=== PATIENT | male | born 1960 | race Caucasian/White ===

== ENCOUNTER 2020-05-22 19:07 | Emergency (ER) | payer MEDICARE, OTHER, SELFPAY ==
[2020-05-22 19:17] VITALS: BP 136/83; PULSE 66; RESP 14; TEMP 36.9; O2SAT 97; BMI 23.7
[2020-05-22 19:41] VITALS: BP 96/52; PULSE 64; RESP 16; O2SAT 98
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
== END 2020-05-22 20:17 | disposition left against medical advice (07) ==
PROVIDERS: Emergency Provider Family Medicine
DX: S80.11XA Contusion of right lower leg, initial encounter (principal); W22.8XXA Striking against or struck by other objects, initial encounter; Z53.21 Procedure and treatment not carried out due to patient leaving prior to being seen by health care provider
CPT/HCPCS: 12345; 99281

== ENCOUNTER 2023-03-19 13:54 | Inpatient (IN) | payer MEDICARE, SELFPAY ==
[2023-03-19 14:16] LABS: Basophils % 0.3 %; Eosinophils # 0.1 10^3/uL (0.0-0.8); Eosinophils % 0.3 %; Hematocrit 55.2 % (42.0-52.0); Hemoglobin 18.2 g/dL (11.7-16.6); Lymphocytes % 13.7 %; Mean Corpuscular Hemoglobin 30.3 pg (28.0-34.0); Mean Corpuscular Volume 91.8 fl (80-94); Mean Platelet Volume 9.1 fL (7.4-10.4); Monocytes # 1.1 10^3/uL (0.2-0.9); Monocytes % 7.3 %; Neutrophils # 11.24 10^3/uL (1.8-7.7); Neutrophils % 77.8 %; Nucleated Red Blood Cells % 0 %; Platelet Count 388 10^3/cmm (130-400); Red Blood Count 6.01 10^6/uL (4.1-5.3); Red Cell Distribution Width 12.5 % (12.1-15.1); White Blood Count 14.5 10^3/uL (4.0-10.0)
[2023-03-19 14:20] VITALS: BP 130/98; PULSE 77; RESP 18; TEMP 36.5; O2SAT 95; BMI 34.8
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
--- NOTE | 2023-03-19 14:27 | ECG_ITS ---
[facility] Test Date: 2023-03-19 Pat Name: Lizzie Dhillon Department: Room: Gender: Male Community Service Manager: : 1960 Requested By: Derian Nava Order Number: [id number] Jennifer MD: Keysha Hebert M.D. Measurements Intervals [place] Rate: 79 P: 51 NC: 164 QRS: 33 QRSD: 86 T: 60 QT: 378 QTc: 435 Interpretive Statements SINUS RHYTHM No previous ECG available for comparison Electronically Signed On 03-19-2023 21:05:54 CDT by Keysha Hebert M.D. [id number]
[2023-03-19 14:40] LABS: Alanine Aminotransferase 21 U/L (0-41); Albumin Level 4.8 g/dL (3.5-5.2); Alkaline Phosphatase 85 U/L (40-130); Anion Gap 17.7 (5-19); Aspartate Amino Transferase 12 U/L (0-40); Blood Urea Nitrogen 30 mg/dL (8-23); Calcium 9.7 mg/dL (8.5-10.5); Carbon Dioxide 25 mmol/L (22-29); Chloride 97 mmol/L (98-107); Globulin 3.8 g/dL (1.3-4.6); Glomerular Filtration Rate 32.3 mL/min (90-130); Glucose 112 mg/dL (65-115); Magnesium 2.4 mg/dL (1.7-2.3); Osmolality Calculated 287 mOsm/kg (285-295); Potassium 4.7 mmol/L (3.5-5.1); Sodium 135 mmol/L (136-145); Total Bilirubin 0.9 mg/dL (0.15-1.2); Total Protein 8.6 g/dL (6.6-8.7)
[2023-03-19] MEDS: sodium chloride 0.9% 1,000 ML 999 ML IV (14:44)
[2023-03-19 14:55] LABS: Lipase 15 U/L (13-60)
--- NOTE | 2023-03-19 15:11 | PC.PHAR ---
Addendum entered by Ashwini Mccormack 03/20/23 08:44: rx filled 02/05/23 90d/s divalproex er 250mg bid-pts family said on 03/19/23 pt took 250mg bid then pts daughter diamante states the pt only takes 250mg hs-annie silva put in divalproex 125mg dr in on 03/19/23 19:44 per pts family and pts daughter diamante on 03/20/23 states the pt is only taking the divalproex er 250mg hs Original Note: pts daughter verified pts medications-pts daughter states the pt just started the increased dose if mounjaro 5mg on sunday
[2023-03-19] MEDS: promethazine 25 mg/mL SDV 1 mL IM (15:27)
--- NOTE | 2023-03-19 15:38 | CTR_ITS ---
PROCEDURE INFORMATION: Exam: CT Abdomen And Pelvis Without Contrast Exam date and time: 03/19/2023 3:47 PM Age: 62 years old Clinical indication: Abdominal pain TECHNIQUE: Imaging protocol: Computed tomography of the abdomen and pelvis without contrast. Radiation optimization: All CT scans at this facility use at least one of these dose optimization techniques: automated exposure control; mA and/or kV adjustment per patient size (includes targeted exams where dose is matched to clinical indication); or iterative reconstruction. REPORTING DATA: Count of CT and Cardiac NM exams in prior 12 months: This patient has received 0 known CTs and 0 known cardiac nuclear medicine studies in the 12 months prior to the current study. COMPARISON: CR XR hip RT 2-3V wo/w pel* [id number] 04/12/2017 9:55 AM RADIATION DOSE METRICS: Total DLP (mGy-cm): 1106.15 FINDINGS: Lungs: Mild subsegmental atelectasis at the lung bases. Small calcified granuloma right hilum and right middle lobe. Liver: There is fatty infiltration throughout the liver which is otherwise unremarkable. Gallbladder and bile ducts: Gallbladder mild-moderately distended which may be due to prolonged fasting. 1.7 cm oval-shaped noncalcified nodular density dependent portion the gallbladder likely representing noncalcified gallstone. Bile ducts not dilated. Pancreas: Unremarkable. Main pancreatic duct is not significantly dilated. Spleen: There are scattered calcified granulomas within the spleen, longstanding, otherwise spleen is unremarkable. Adrenal glands: Adrenal glands are not enlarged. No masses detected. Kidneys and ureters: Scarring right kidney. Left kidney is unremarkable. Stomach and bowel: Stomach mildly distended. There are multiple mildly dilated small bowel loops involving proximal mid small bowel with decompressed distal small bowel consistent with a mid small bowel obstruction. Transition point identified lateral aspect right mid abdomen. (Series 3, image 39). No compelling evidence of small bowel volvulus. Few scattered diverticula sigmoid colon without evidence of acute diverticulitis. Appendix: No evidence of appendicitis. Intraperitoneal space: Unremarkable. No free air. No significant fluid collection. Vasculature: Scattered atherosclerotic changes of the abdominal aorta and iliac vessels. No aortic aneurysm. Lymph nodes: Unremarkable. No enlarged lymph nodes. Urinary bladder: Urinary bladder is unremarkable. Reproductive: Prostate gland not significantly enlarged. Bones/joints: Cephalomedullary nail within the left hip. Moderate degenerative changes L5-S1. No acute bony abnormalities. Soft tissues: Soft tissues are unremarkable. CT/CT abdomen pelvis wo con [id number] IMPRESSION: 1. Findings consistent with mid small bowel obstruction etiology of which is unclear. No compelling evidence of small bowel volvulus. 2. Mildly distended gallbladder with solitary gallstone. 3. Fatty infiltration of the liver. 4. Scattered diverticuli distal large bowel without evidence of acute diverticulitis. 5. Additional chronic findings as above.
[2023-03-19] MEDS: LORazepam 2 mg/mL INJ 1 mL IVP ×2 (16:49→21:42)
[2023-03-19] MEDS: cetacaine Spray 20 gm Can 1 SPRAY TOPICAL (16:54)
--- NOTE | 2023-03-19 17:07 | XRR_ITS ---
PROCEDURE INFORMATION: Exam: XR Chest Exam date and time: 03/19/2023 5:27 PM Age: 62 years old Clinical indication: Device placement; Ng tube; Additional info: Check ng tube placement TECHNIQUE: Imaging protocol: Radiologic exam of the chest. Views: 1 view. COMPARISON: CR XR chest 2V* [id number] 01/09/2018 2:37 PM FINDINGS: Tubes, catheters and devices: Patient has undergone placement of an NG tube whose tip projects over the midportion of the body of the stomach approximately 7 cm below the GE junction. Lungs: Visualized lung [place] are aerated and clear. Pleural spaces: Unremarkable. No pleural effusion. No pneumothorax. Heart/Mediastinum: Unremarkable. No cardiomegaly. Bones/joints: Unremarkable for age. XR/XR chest 1V portable [id number] IMPRESSION: NG tube tip within the body of the stomach
--- NOTE | 2023-03-19 18:00 | PM.HP ---
Providers/Chief Complaint Admitting Physician: Tania Albright MD Primary Care Provider: SILVER Pruitt Chief Complaint: N/V/D History of Present Illness Lizzie Dhillon is a 62 year old male with past medical history of type 2 diabetes mellitus on Mounjaro, DVT x2, appendectomy in past, hypertension, traumatic brain injury presents to the ER today with nausea and vomiting for last 3 days. Vomitus containing food particle and bilious in nature. Denies any melena, hematemesis, hematochezia. Does complain of diarrhea ongoing for 3 to 4 days as well along with abdominal pain. Denies any chest pain. Denies any recent changes in medications. ER course: NG tube was placed after 2 mg of IV Ativan. Surgery was consulted. Patient was given Zofran, Phenergan and 2 L of IV fluids. On examination patient is lying comfortably in bed complaining of mild nausea and abdominal pain. NG tube came out while patient was sneezing. Review of Systems General: Reports: 10 or more systems reviewed and unremarkable except in HPI and below Const: Denies: fever(s), chills or body aches Eyes: Denies: change in vision, blurry vision or photophobia ENMT: Reports: hoarseness; Denies: throat pain, enlarged tonsils, odynophagia or nasal congestion Card: Denies: chest pain, palpitations, irregular heart rhythm, edema, swelling of feet/ankles, lightheadedness, pre-syncope, dyspnea on exertion or orthopnea Resp: Denies: dyspnea, productive cough, non-productive cough, wheezing, stridor, pain on inspiration, change in phlegm color, hemoptysis or chest congestion GI: Denies: abdominal pain, nausea, vomiting, hematemesis, coffee ground emesis, dysphagia, heartburn, diarrhea, constipation, GI cramping, change in stool character, hematochezia or melena : Denies: flank pain, dysuria, urinary frequency, urinary urgency, urinary hesitancy or hematuria Musc: Denies: neck pain, back pain, extremity pain, joint swelling, joint warmth or deformity Neuro: Denies: headache(s), numbness in extremities, weakness in extremities, sensory changes, difficulty walking, frequent falls, dizziness, vertigo, behavioral changes, Slurred speech present or seizure-like activity Psych: Denies: anxiety, depression, suicidal ideation or homicidal ideation Endo: Denies: polyuria, polydipsia, tired all the time, cold intolerance or hot flashes Lalo/Lymph: Denies: easy bruising or easy bleeding Medications/Allergies Home Medications Medication Instructions Recorded Confirmed Last Taken Type apixaban 5 mg tablet 5 mg PO BID 09/14/22 03/19/23 03/19/23 09:00 History amlodipine 10 mg tablet 10 mg PO BEDTIME 03/19/23 03/19/23 03/18/23 History divalproex 125 mg tablet,delayed mg PO BEDTIME 03/19/23 Unknown History release divalproex 250 mg tablet,extended 250 mg PO BEDTIME 03/19/23 03/19/23 03/19/23 09:00 History release 24 hr fluticasone propionate 50 2 spray intranasal DAILY PRN 03/19/23 03/19/23 Unknown History mcg/actuation nasal Allergy Symptoms spray,suspension lisinopril 40 mg tablet 40 mg PO QAM 03/19/23 03/19/23 03/19/23 History magnesium oxide 400 mg PO BEDTIME 03/19/23 03/19/23 03/18/23 History propranolol 20 mg tablet 20 mg PO BID 03/19/23 03/19/23 03/19/23 09:00 History tirzepatide 5 mg/0.5 mL 5 mg SUBCUT Q7D 03/19/23 03/19/23 03/16/23 History subcutaneous pen injector (Mounjaro) Allergies Allergy/AdvReac Type Severity Reaction Status Date / Time No Known Allergies Allergy Verified 03/19/23 14:25 PFSH Acute PFSH: Medical History (Updated 03/19/23 @ 22:36 by Tania Albright MD) Diabetes mellitus HTN (hypertension) Hx of deep venous thrombosis Hx of traumatic brain injury Surgical History (Updated 03/19/23 @ 16:35 by Derian Long DO) History of appendectomy Social History (Updated 03/19/23 @ 22:34 by Tania Albright MD) Smoking and tobacco status: former smoker Alcohol intake: never Substance/Drug Use: never Household members: family Housing: House Vitals/I&O/Wt Last Vital Signs Temp 97.7 F 03/19/23 14:20 Pulse 77 03/19/23 14:20 Resp 18 03/19/23 14:20 BP 130/98 03/19/23 14:20 Pulse Ox 95 03/19/23 14:20 O2 Del Method Nasal Cannula 03/19/23 14:20 O2 Flow Rate 4 03/19/23 14:20 03/19/23 03/19/23 03/19/23 06:59 14:59 22:59 Intake Total 1000 / 1000 Balance 1000 / 1000 Weight last 48 hrs Weight 113.398 kg Physical Exam Narrative: General: No acute distress, AO x 3, dehydrated HEENT: PERRLA, pupils bilaterally equal and reactive, pallors not present Chest: Normal vesicular breath sounds, no added sounds, equal good air entry bilaterally CVS: S1-S2 regular, no murmurs, no tachycardia, no gallops, no rubs Abdomen: Soft, generalized tenderness, no rebound, no organomegaly, bowel sounds sluggish Neuro: No focal deficits, no facial deformity, AO x3, power 5/5 in all limbs Data 03/19/23 14:08 03/19/23 14:08 A&P Assessment and plan (1) Small bowel obstruction: Seen on CT abdomen pelvis. Transition point in lateral aspect of right mid abdomen. Surgery has been consulted. G-tube placement. Conservative treatment. NPO. Patient does have leukocytosis with diarrhea. Check blood culture, stool studies to rule out C. difficile. Start on IV Zosyn. Normal saline at 75 cc/h. Protonix daily, Zofran as needed. (2) EILEEN (acute kidney injury): Most likely in setting of dehydration along with home dose of lisinopril. Check urine lites, urinalysis. Monitor BMP daily. Fluid as above. Medical reconciliation done for nephrotoxic drugs. (3) Leukocytosis: Follow-up blood culture, stool studies. Cannot rule out in setting of dehydration and reactive in setting of small bowel obstruction (4) Diarrhea: (5) Diabetes mellitus: Check A1c. Insulin sliding scale low-dose protocol every 6 hours (6) HTN (hypertension): Goal blood pressure less than 140/90 mmHg. Hydralazine 5 mg every 4 hours as needed for systolic blood pressure more than 140 mmHg. (7) History of appendectomy: (8) Hx of deep venous thrombosis: X2. Takes Eliquis 5 mg twice daily at home. Currently NPO. Lovenox 1 mg/kg body weight every 12 hourly. Plan Full code. NPO. Protonix OPD prophylaxis. We will hold off Lovenox will suffice as DVT prophylaxis. Attestations Medical Necessity Statement*: For more than 2 midnights for management of small bowel obstruction, acute kidney injury Diagnoses Small bowel obstruction K56.609 EILEEN (acute kidney injury) N17.9 Leukocytosis D72.829 Diarrhea R19.7 Diabetes mellitus E11.9 HTN (hypertension) I10 History of appendectomy Z90.49 Hx of deep venous thrombosis Z86.718
[2023-03-19] MEDS: D5-NS 0.45% + KCL 20 mEq 20 MEQ/1,000 ML BAG 100 MEQ IV (18:11)
[2023-03-19 19:52] VITALS: PULSE 74; O2SAT 90
[2023-03-19 19:53] VITALS: PULSE 74; RESP 18; O2SAT 90
[2023-03-19 20:00] VITALS: BP 118/84; PULSE 86; RESP 16; TEMP 36.1; O2SAT 94
[2023-03-19] MEDS: pantoprazole 40 mg SDV IVP (21:42)
[2023-03-19] MEDS: enoxaparin 100 mg/mL Syringe 110 MG SUBCUT (21:42)
[2023-03-19] MEDS: cetacaine Spray 5 gm Can 1 SPRAY TOPICAL (21:43)
[2023-03-19 22:01] LABS: NT Pro B Type Natriuretic Pept 46 pg/mL (0-125); Procalcitonin 0.19 ng/mL (0-0.5); Vitamin B12 459 pg/mL (232-1245)
[2023-03-19] MEDS: piperacillin-tazobactam 3.375 GM in sodium chloride 0.9% (plus) 50 ML IV (22:07)
[2023-03-19 22:11] LABS: Iron 35 ug/dL (59-158); Percent Saturation 9.2 % (20-50); Total Iron Binding Capacity 378 mcg/dl; Unsaturated Iron Binding 343 ug/dL (112-347)
--- NOTE | 2023-03-19 22:53 | XRR_ITS ---
PROCEDURE INFORMATION: Exam: XR Chest Exam date and time: 03/19/2023 11:02 PM Age: 62 years old Clinical indication: Device placement; Ng tube; Additional info: Ng placement TECHNIQUE: Imaging protocol: Radiologic exam of the chest. Views: 1 view. COMPARISON: CR (CHEST, ) 03/19/2023 5:27 PM FINDINGS: Tubes, catheters and devices: There is a feeding tube present with its tip in the stomach advanced since prior. Lungs: Bibasilar infiltrates are now present with pulmonary hypoinflation. Pleural spaces: Unremarkable. No pleural effusion. No pneumothorax. Heart/Mediastinum: Stable heart size. Bones/joints: Stable bones. XR/XR chest 1V portable [id number] IMPRESSION: 1. Feeding tube tip in stomach, advanced since previous. 2. New bibasilar infiltrates. Correlate for pneumonia.
[2023-03-19 23:01] LABS: Glucose Point of Care 150 mg/dL (70-110)
[2023-03-19] MEDS: sodium chloride 0.9% 1,000 ML 75 ML IV (23:19)
[2023-03-19] MEDS: insulin lispro 100 unit/1 mL SUBCUT (23:19)
[2023-03-20] VITALS (11 sets, daily range): BP systolic 103–138; BP diastolic 71–90; PULSE 64–105; RESP 17–20; TEMP 36.2–36.8; O2SAT 89–96
[2023-03-20] MEDS: sodium chloride 0.9% 1,000 ML 999 ML IV (03:28)
[2023-03-20 04:11] LABS: Glucose Point of Care 106 mg/dL (70-110)
[2023-03-20] MEDS: piperacillin-tazobactam 3.375 GM in sodium chloride 0.9% (plus) 50 ML IV ×3 (05:16→20:45)
[2023-03-20 05:34] LABS: Add Urine Microscopic? YES; Bilirubin Urine 1+ (Negative); Blood Urine Neg (Negative); Glucose Urine UA Norm (Normal); Ketones Urine 1+ (Negative); Leukocyte Esterase Urine Negative (Negative); Nitrate Urine Negative (Negative); Protein Urine 1+ (Negative); Urine Appearance Hazy (CLEAR); Urine Color Yellow (Yellow); Urobilinogen Urine 1 mg/dL (Negative); pH Urine 5 (5-7)
[2023-03-20 05:35] LABS: Add Urine Culture? No; Bacteria Urine 1+ /hpf; Mucus Urine 4+ /hpf
[2023-03-20 05:38] LABS: Potassium, Radom Urine 92 mmol/L; Urine Random Chloride 30 mmol/L; Urine Random Sodium 38 mmol/L
[2023-03-20 07:35] LABS: Basophils % 0.2 %; Eosinophils # 0.1 10^3/uL (0.0-0.8); Eosinophils % 0.4 %; Hematocrit 46.4 % (42.0-52.0); Hemoglobin 15.1 g/dL (11.7-16.6); Lymphocytes # 2.1 10^3/uL (0.8-4.8); Lymphocytes % 18.6 %; Mean Corpuscular HGB Conc 32.5 g/dL (30.0-36.0); Mean Corpuscular Hemoglobin 30.3 pg (28.0-34.0); Mean Corpuscular Volume 93.2 fl (80-94); Mean Platelet Volume 9.2 fL (7.4-10.4); Monocytes # 1.1 10^3/uL (0.2-0.9); Monocytes % 10.2 %; Neutrophils # 7.86 10^3/uL (1.8-7.7); Neutrophils % 70.2 %; Nucleated Red Blood Cells % 0 %; Platelet Count 307 10^3/cmm (130-400); Red Blood Count 4.98 10^6/uL (4.1-5.3); Red Cell Distribution Width 12.6 % (12.1-15.1); White Blood Count 11.2 10^3/uL (4.0-10.0)
--- NOTE | 2023-03-20 08:00 | PM.CONSULT ---
Providers/Reason For Consult Consulting Physician/Specialty*: Dr. Dave Piedra, DO/General surgery Reason for Consult*: Small bowel obstruction Attending Physician: Tania Albright MD Primary Care Provider: SILVER Pruitt History of Present Illness History of Present Illness Lizzie Dhillon is a 62 year old male, with a history of appendectomy, presented to the hospital with a 2-day history of nausea vomiting and diarrhea. He denies any hematemesis, hematochezia and/or melena. He denies any significant abdominal pain. A CT of the abdomen and pelvis in the ER showed a small bowel obstruction with a transition point in the right lower quadrant. He pulled out his NG tube while in the ER and it was replaced. He again pulled his NG tube out this morning. He reports that he is having diarrhea but has not passed flatus since yesterday. Review of Systems General: Reports: 10 or more systems reviewed and unremarkable except in HPI and below Medications/Allergies Home Medications Medication Instructions Recorded Confirmed Last Taken Type apixaban 5 mg tablet 5 mg PO BID 09/14/22 03/19/23 03/19/23 09:00 History amlodipine 10 mg tablet 10 mg PO BEDTIME 03/19/23 03/19/23 03/18/23 History divalproex 250 mg tablet,extended 250 mg PO BEDTIME 03/19/23 03/19/23 03/19/23 09:00 History release 24 hr fluticasone propionate 50 2 spray intranasal DAILY PRN 03/19/23 03/19/23 Unknown History mcg/actuation nasal Allergy Symptoms spray,suspension lisinopril 40 mg tablet 40 mg PO QAM 03/19/23 03/19/23 03/19/23 History magnesium oxide 400 mg PO BEDTIME 03/19/23 03/19/23 03/18/23 History propranolol 20 mg tablet 20 mg PO BID 03/19/23 03/19/23 03/19/23 09:00 History tirzepatide 5 mg/0.5 mL 5 mg SUBCUT Q7D 03/19/23 03/19/23 03/16/23 History subcutaneous pen injector (Mounjaro) Allergies Allergy/AdvReac Type Severity Reaction Status Date / Time No Known Allergies Allergy Verified 03/19/23 14:25 Current Medications Generic Name Dose Route Start Last Admin Trade Name Freq PRN Reason Stop Dose Admin Enoxaparin Sodium 100 mg 03/20/23 10:00 03/20/23 10:08 Enoxaparin 100 Mg/Ml Syringe SUBCUT 100 mg Q12H TRACEY Administration Piperacillin Sod/Tazobactam 50 mls @ 12.5 mls/hr 03/19/23 21:30 03/20/23 13:34 Sod 3.375 gm/ Sodium Chloride IV 12.5 mls/hr Q8H TRACEY Administration Sodium Chloride 1,000 mls @ 75 mls/hr 03/20/23 10:15 03/20/23 11:58 Sodium Chloride 0.9% IV 150 mls/hr .[id number] TRACEY Administration Insulin Human Lispro 0 unit 03/19/23 22:45 03/20/23 15:17 Insulin Lispro 100 Unit/1 Ml SUBCUT Not Given Q6H TRACEY Protocol Pantoprazole Sodium 40 mg 03/19/23 18:15 03/19/23 21:42 Pantoprazole 40 Mg Sdv IVP 40 mg Q24H TRACEY Administration Propranolol HCl 20 mg 03/20/23 18:00 03/20/23 17:15 Propranolol 20 Mg Tablet PO 20 mg BID TRACEY Administration PFSH Acute PFSH: Medical History Diabetes mellitus HTN (hypertension) Hx of deep venous thrombosis Hx of traumatic brain injury Surgical History History of appendectomy Social History Smoking and tobacco status: former smoker Alcohol intake: never Substance/Drug Use: never Household members: family Housing: House Vitals/I&O/Wt Last Vital Signs Temp 98.2 F 03/20/23 15:23 Pulse 75 03/20/23 15:23 Resp 18 03/20/23 15:23 BP 109/75 03/20/23 15:23 Pulse Ox 95 03/20/23 15:23 O2 Del Method Room Air 03/20/23 15:23 O2 Flow Rate 2 03/20/23 11:20 03/20/23 03/20/23 03/20/23 06:59 14:59 22:59 Intake Total 1631.667 / 2631.667 643.125 / 643.125 240 / 883.125 Output Total 850 / 850 Balance 781.667 / 1781.667 643.125 / 643.125 240 / 883.125 Weight last 48 hrs Weight 250 lb Physical Exam Narrative: General : Patient is well developed , no acute distress, oriented x3 Head : Normal cephalic, a-traumatic. Ears : Pinnae and external canal are normal. Hearing is normal. Eyes : PERRLA, Sclera and injection are normal. No conjunctival discharge. Nose : Mucous membranes are without erythema. Throat : buccal mucosa is normal, gums are without significant recession or hypertrophy. Lungs : Equal chest rise bilaterally, no use of accessory muscles, trachea is midline. Cor : Rate and rhythm are normal. Abdomen : Soft, mildly distended, NT, no g/r/m Extremities : No edema, no cyanosis or clubbing, dorsalis pedis pulses are present bilaterally, non-tender to palpation of calves. Upper extremities are normal bilaterally. Back : non-tender to palpation, no CVA tenderness. Neuro : CN II - XII intact, Upper and lower extremities have equal and full strength Data 03/20/23 06:41 03/20/23 06:41 A&P Assessment and plan (1) Partial small bowel obstruction: Plan Stool studies pending IV fluids at 150 cc/h N.p.o. NGT if patient vomits skin Conservative management for now. If he does not begin passing flatus in the next few days we will have to consider diagnostic laparoscopy versus exploratory laparotomy Medical management per hospitalist Coding Level of Care Code 84349 Diagnoses Partial small bowel obstruction K56.600
[2023-03-20 08:06] LABS: Chol HDL Ratio 4.84 mg/dL (1.0-5.00); Cholesterol 150 mg/dL (0-200); HDL Cholesterol 31 mg/dL (60-100); LDL Cholesterol Calculated 95 mg/dL (50-129); Triglycerides 122 mg/dL (0-150); VLDL Cholestrol Calculation 24 mg/dL (0-30)
[2023-03-20 08:20] LABS: Alanine Aminotransferase 21 U/L (0-41); Albumin Level 3.8 g/dL (3.5-5.2); Alkaline Phosphatase 65 U/L (40-130); Anion Gap 16.4 (5-19); Aspartate Amino Transferase 12 U/L (0-40); Blood Urea Nitrogen 32 mg/dL (8-23); Calcium 8.5 mg/dL (8.5-10.5); Carbon Dioxide 23 mmol/L (22-29); Chloride 105 mmol/L (98-107); Globulin 2.5 g/dL (1.3-4.6); Glomerular Filtration Rate 34.1 mL/min (90-130); Glucose 100 mg/dL (65-115); Osmolality Calculated 297 mOsm/kg (285-295); Potassium 4.4 mmol/L (3.5-5.1); Sodium 140 mmol/L (136-145); Thyroid Stimulating Hormone 1.65 uIU/mL (0.27-4.20); Total Protein 6.3 g/dL (6.6-8.7)
[2023-03-20 08:22] LABS: Folate Level 9.4 ng/mL (4.5-32.2)
[2023-03-20 08:29] LABS: Magnesium 1.9 mg/dL (1.7-2.3)
[2023-03-20] MEDS: enoxaparin 100 mg/mL Syringe SUBCUT ×2 (10:08→20:47)
[2023-03-20 10:38] LABS: Glucose Point of Care 103 mg/dL (70-110)
[2023-03-20] MEDS: sodium chloride 0.9% 1,000 ML 150 ML IV (11:58)
--- NOTE | 2023-03-20 16:43 | PM.PN ---
Subjective Subjective: Some flatus this evening. He has been started on a clear liquid diet after assessment by surgery. Medications: Reviewed: Yes Vitals/I&O/Wt Last Vital Signs Temp 98.2 F 03/20/23 15:23 Pulse 75 03/20/23 15:23 Resp 18 03/20/23 15:23 BP 109/75 03/20/23 15:23 Pulse Ox 95 03/20/23 15:23 O2 Del Method Room Air 03/20/23 15:23 O2 Flow Rate 2 03/20/23 11:20 03/20/23 03/20/23 03/20/23 06:59 14:59 22:59 Intake Total 1631.667 / 2631.667 643.125 / 643.125 Output Total 850 / 850 Balance 781.667 / 1781.667 643.125 / 643.125 Weight last 48 hrs Weight 113.398 kg Physical Exam Narrative: General: No acute distress, AO x 3, dehydrated HEENT: PERRLA, pupils bilaterally equal and reactive, pallors not present Chest: Normal vesicular breath sounds, no added sounds, equal good air entry bilaterally CVS: S1-S2 regular, no murmurs, no tachycardia, no gallops, no rubs Abdomen: Soft, generalized tenderness, no rebound, no organomegaly, bowel sounds sluggish Neuro: No focal deficits, no facial deformity, AO x3, power 5/5 in all limbs Data 03/20/23 06:41 03/20/23 06:41 A&P Assessment and plan (1) Small bowel obstruction: Seen on CT abdomen pelvis. Transition point in lateral aspect of right mid abdomen. Surgery has been consulted, appreciate recommendations G-tube placement attempted twice, patient removed x 2 on Conservative treatment for now advanced to clears today Check blood culture, stool studies to rule out C. difficile. Normal saline at 75 cc/h. Protonix daily, Zofran as needed. (2) EILEEN (acute kidney injury): Most likely in setting of dehydration along with home dose of lisinopril. Check urine lites, urinalysis. Monitor BMP daily. Fluid as above. Medical reconciliation done for nephrotoxic drugs. (3) Leukocytosis: Follow-up blood culture, stool studies. Cannot rule out in setting of dehydration and reactive in setting of small bowel obstruction (4) Diarrhea: (5) Diabetes mellitus: Insulin sliding scale low-dose protocol every 6 hours (6) HTN (hypertension): Goal blood pressure less than 140/90 mmHg. Hydralazine 5 mg every 4 hours as needed for systolic blood pressure more than 140 mmHg. (7) History of appendectomy: (8) Hx of deep venous thrombosis: X2. Takes Eliquis 5 mg twice daily at home. Lovenox 1 mg/kg body weight every 12 hourly while inaptient in case needs surgical intervention down the line . Plan Full code. NPO. Protonix OPD prophylaxis. We will hold off Lovenox will suffice as DVT prophylaxis. Attestations Medical Necessity Statement*: SBO, awaiting return of bowel function Coding Level of Care Code Acute Code for [facility] Diagnoses Small bowel obstruction K56.609 EILEEN (acute kidney injury) N17.9 Leukocytosis D72.829 Diarrhea R19.7 Diabetes mellitus E11.9 HTN (hypertension) I10 History of appendectomy Z90.49 Hx of deep venous thrombosis Z86.718
[2023-03-20] MEDS: propranolol 20 mg Tablet PO (17:15)
[2023-03-20 17:58] LABS: Glucose Point of Care 106 mg/dL (70-110)
[2023-03-20] MEDS: pantoprazole 40 mg SDV IVP (19:40)
[2023-03-20 20:21] LABS: Glucose Point of Care 114 mg/dL (70-110)
[2023-03-20] MEDS: sodium chloride 0.9% 1,000 ML 75 ML IV (20:45)
[2023-03-20] MEDS: divalproex ER 250 mg Tablet (24H) PO (20:47)
[2023-03-21] VITALS (8 sets, daily range): BP systolic 113–148; BP diastolic 77–83; PULSE 53–64; RESP 15–18; TEMP 36.1–36.4; O2SAT 91–96
[2023-03-21 04:24] LABS: Glucose Point of Care 91 mg/dL (70-110)
[2023-03-21] MEDS: piperacillin-tazobactam 3.375 GM in sodium chloride 0.9% (plus) 50 ML IV ×3 (04:50→20:30)
[2023-03-21] MEDS: propranolol 20 mg Tablet PO (09:03)
[2023-03-21] MEDS: bisacodyl 5 mg Tablet 10 MG PO (09:04)
[2023-03-21] MEDS: enoxaparin 100 mg/mL Syringe SUBCUT ×2 (09:04→22:24)
[2023-03-21 10:14] LABS: Glucose Point of Care 107 mg/dL (70-110)
[2023-03-21 13:51] LABS: Basophils % 0.1 %; Eosinophils # 0.1 10^3/uL (0.0-0.8); Eosinophils % 1.8 %; Hematocrit 41.8 % (42.0-52.0); Hemoglobin 13.3 g/dL (11.7-16.6); Lymphocytes # 2.4 10^3/uL (0.8-4.8); Lymphocytes % 32.4 %; Mean Corpuscular HGB Conc 31.8 g/dL (30.0-36.0); Mean Corpuscular Hemoglobin 30.2 pg (28.0-34.0); Mean Corpuscular Volume 94.8 fl (80-94); Mean Platelet Volume 9.1 fL (7.4-10.4); Monocytes # 0.6 10^3/uL (0.2-0.9); Monocytes % 8.6 %; Neutrophils # 4.12 10^3/uL (1.8-7.7); Neutrophils % 56.8 %; Nucleated Red Blood Cells % 0 %; Platelet Count 266 10^3/cmm (130-400); Red Blood Count 4.41 10^6/uL (4.1-5.3); Red Cell Distribution Width 12.8 % (12.1-15.1); White Blood Count 7.3 10^3/uL (4.0-10.0)
[2023-03-21] MEDS: sodium chloride 0.9% 1,000 ML 75 ML IV (14:01)
--- NOTE | 2023-03-21 14:13 | PM.PN ---
Subjective Subjective: Patient denies any abdominal pain and/or nausea. He reports that he is passing flatus but has not had a bowel movement in last 24 hours. Vitals/I&O/Wt Last Vital Signs Temp 97 F L 03/21/23 11:50 Pulse 53 L 03/21/23 11:50 Resp 18 03/21/23 11:50 BP 119/80 03/21/23 11:50 Pulse Ox 96 03/21/23 11:50 O2 Del Method Nasal Cannula 03/21/23 11:50 O2 Flow Rate 2 03/21/23 08:00 03/20/23 03/21/23 03/21/23 22:59 06:59 14:59 Intake Total 1530 / 2173.125 50 / 2223.125 2250 / 2250 Output Total 200 / 200 Balance 1530 / 2173.125 -150 / 2023.125 2250 / 2250 Weight last 48 hrs Weight 252 lb Weight 250 lb Physical Exam Narrative: General: No acute distress, awake alert and oriented x3 Abdomen: Soft, distended, nontender to palpation, no guarding rebound or masses Data 03/21/23 13:27 03/20/23 06:41 A&P Assessment and plan (1) Partial small bowel obstruction: Plan IV fluids Advance to full liquids Medical management per hospitalist Conservative management for now. If he has a bowel movement he can be advanced to a soft diet and discharged home No need to follow-up with general surgery Attestations Medical Necessity Statement*: Per primary Coding Level of Care Code 37966 Diagnoses Partial small bowel obstruction K56.600
[2023-03-21 14:27] LABS: Blood Urea Nitrogen 13 mg/dL (8-23); Calcium 8.4 mg/dL (8.5-10.5); Chloride 106 mmol/L (98-107); Glomerular Filtration Rate 68.1 mL/min (90-130); Magnesium 1.9 mg/dL (1.7-2.3); Potassium 4.4 mmol/L (3.5-5.1); Sodium 139 mmol/L (136-145); Total Bilirubin 0.7 mg/dL (0.15-1.2)
[2023-03-21 14:36] LABS: Alanine Aminotransferase 26 U/L (0-41); Anion Gap 13.4 (5-19); Aspartate Amino Transferase 13 U/L (0-40); Carbon Dioxide 24 mmol/L (22-29); Glucose 103 mg/dL (65-115); Osmolality Calculated 288 mOsm/kg (285-295); Total Protein 5.9 g/dL (6.6-8.7)
[2023-03-21 14:37] LABS: Albumin Level 3.6 g/dL (3.5-5.2); Alkaline Phosphatase 54 U/L (40-130); Globulin 2.3 g/dL (1.3-4.6)
[2023-03-21 16:25] LABS: Glucose Point of Care 85 mg/dL (70-110)
--- NOTE | 2023-03-21 17:11 | PM.PN ---
Subjective Subjective: Patiently is currently tolerating a clear liquid diet. No acute complaints. Wishes to get out of bed and take a shower today. Has not had a bowel movement yet but is passing flatus. No nausea or vomiting. Medications: Reviewed: Yes Vitals/I&O/Wt Last Vital Signs Temp 97 F L 03/21/23 11:50 Pulse 53 L 03/21/23 11:50 Resp 18 03/21/23 11:50 BP 119/80 03/21/23 11:50 Pulse Ox 96 03/21/23 11:50 O2 Del Method Nasal Cannula 03/21/23 11:50 O2 Flow Rate 2 03/21/23 08:00 03/21/23 03/21/23 03/21/23 06:59 14:59 22:59 Intake Total 50 / 2223.125 2250 / 2250 Output Total 200 / 200 Balance -150 / 2022.125 2250 / 2250 Weight last 48 hrs Weight 114.305 kg Physical Exam Narrative: General: No acute distress, AO x 3 HEENT: PERRLA, pupils bilaterally equal and reactive, pallors not present Chest: Normal vesicular breath sounds, no added sounds, equal good air entry bilaterally CVS: S1-S2 regular, no murmurs, no tachycardia, no gallops, no rubs Abdomen: Soft, mildly distended, BS+ Neuro: No focal deficits, no facial deformity, AO x3, power 5/5 in all limbs Data 03/21/23 13:27 03/21/23 13:27 A&P Assessment and plan (1) Small bowel obstruction: Seen on CT abdomen pelvis. Transition point in lateral aspect of right mid abdomen. Surgery has been consulted, appreciate recommendations G-tube placement attempted twice, patient removed x 2 on Conservative treatment for now Tolerating clear liquid diet currently, advancing per surgery Protonix daily, Zofran as needed. (2) EILEEN (acute kidney injury): Most likely in setting of dehydration along with home dose of lisinopril. Check urine lites, urinalysis. Monitor BMP daily. Fluid as above. Medical reconciliation done for nephrotoxic drugs. (3) Leukocytosis: Follow-up blood culture, stool studies. Cannot rule out in setting of dehydration and reactive in setting of small bowel obstruction (4) Diarrhea: (5) Diabetes mellitus: Insulin sliding scale low-dose protocol every 6 hours (6) HTN (hypertension): Goal blood pressure less than 140/90 mmHg. Hydralazine 5 mg every 4 hours as needed for systolic blood pressure more than 140 mmHg. reduce propranolol given bradycardia 50s (7) History of appendectomy: (8) Hx of deep venous thrombosis: X2. Takes Eliquis 5 mg twice daily at home. Lovenox 1 mg/kg body weight every 12 hourly while inaptient in case needs surgical intervention down the line . Plan Full code. NPO. Protonix OPD prophylaxis. Lovenox will suffice as DVT prophylaxis. Attestations Medical Necessity Statement*: awaiting return of bowel function Coding Level of Care Code Acute Code for [facility] Diagnoses Small bowel obstruction K56.609 EILEEN (acute kidney injury) N17.9 Leukocytosis D72.829 Diarrhea R19.7 Diabetes mellitus E11.9 HTN (hypertension) I10 History of appendectomy Z90.49 Hx of deep venous thrombosis Z86.718
[2023-03-21] MEDS: pantoprazole 40 mg SDV IVP (18:40)
[2023-03-21] MEDS: divalproex ER 250 mg Tablet (24H) PO (20:30)
[2023-03-21 21:00] LABS: Glucose Point of Care 91 mg/dL (70-110)
[2023-03-22] VITALS: BP 125/81; PULSE 55; RESP 16; TEMP 36.4; O2SAT 96
[2023-03-22 03:14] VITALS: PULSE 66; O2SAT 94
[2023-03-22 03:56] LABS: Glucose Point of Care 87 mg/dL (70-110)
[2023-03-22 04:00] VITALS: BP 126/79; PULSE 56; RESP 14; TEMP 36.4; O2SAT 96
--- NOTE | 2023-03-22 04:00 | XRR_ITS ---
PROCEDURE INFORMATION: Exam: XR Abdomen Exam date and time: 03/22/2023 4:41 AM Age: 62 years old Clinical indication: Other: Follow up sbo TECHNIQUE: Imaging protocol: Radiologic exam of the abdomen. Views: Frontal supine view of the abdomen. 1 View. COMPARISON: CT abdomen pelvis con [id number] 03/19/2023 3:47 PM FINDINGS: Gastrointestinal tract: Normal. No bowel dilation. Bones/joints: Unremarkable. XR/XR abdomen 1V* [id number] IMPRESSION: No acute findings.
[2023-03-22 05:12] LABS: Basophils % 0.1 %; Eosinophils # 0.1 10^3/uL (0.0-0.8); Eosinophils % 1.3 %; Hematocrit 38.9 % (42.0-52.0); Hemoglobin 12.7 g/dL (11.7-16.6); Lymphocytes # 2.8 10^3/uL (0.8-4.8); Lymphocytes % 40.1 %; Mean Corpuscular HGB Conc 32.6 g/dL (30.0-36.0); Mean Corpuscular Hemoglobin 30.4 pg (28.0-34.0); Mean Corpuscular Volume 93.1 fl (80-94); Mean Platelet Volume 9.2 fL (7.4-10.4); Monocytes # 0.5 10^3/uL (0.2-0.9); Monocytes % 7.7 %; Neutrophils # 3.46 10^3/uL (1.8-7.7); Neutrophils % 50.5 %; Nucleated Red Blood Cells % 0 %; Platelet Count 248 10^3/cmm (130-400); Red Blood Count 4.18 10^6/uL (4.1-5.3); Red Cell Distribution Width 12.6 % (12.1-15.1); White Blood Count 6.9 10^3/uL (4.0-10.0)
[2023-03-22 05:38] LABS: Alanine Aminotransferase 23 U/L (0-41); Albumin Level 3.4 g/dL (3.5-5.2); Alkaline Phosphatase 54 U/L (40-130); Anion Gap 13.1 (5-19); Aspartate Amino Transferase 11 U/L (0-40); Blood Urea Nitrogen 7 mg/dL (8-23); Calcium 8.2 mg/dL (8.5-10.5); Carbon Dioxide 26 mmol/L (22-29); Chloride 106 mmol/L (98-107); Globulin 2.2 g/dL (1.3-4.6); Glucose 91 mg/dL (65-115); Osmolality Calculated 290 mOsm/kg (285-295); Potassium 4.1 mmol/L (3.5-5.1); Sodium 141 mmol/L (136-145); Total Bilirubin 0.5 mg/dL (0.15-1.2); Total Protein 5.6 g/dL (6.6-8.7)
[2023-03-22] MEDS: sodium chloride 0.9% 1,000 ML 50 ML IV (05:48)
[2023-03-22] MEDS: piperacillin-tazobactam 3.375 GM in sodium chloride 0.9% (plus) 50 ML IV (05:48)
[2023-03-22 06:16] VITALS: PULSE 59
[2023-03-22 08:00] VITALS: BP 131/85; PULSE 58; RESP 15; TEMP 36.7; O2SAT 94
--- NOTE | 2023-03-22 08:22 | PM.PN ---
Subjective Subjective: 62-year-old male with history of appendectomy who presented with a partial small bowel obstruction, being managed with nonoperative management. In the last 24 hours patient has made significant improvements, he has been passing gas and stool, no more nausea and vomit, feels hungry and wants to go home. Vitals/I&O/Wt Last Vital Signs Temp 97.6 F 03/22/23 04:00 Pulse 59 L 03/22/23 06:16 Resp 14 03/22/23 04:00 BP 126/79 03/22/23 04:00 Pulse Ox 96 03/22/23 04:00 O2 Del Method Nasal Cannula 03/22/23 04:00 O2 Flow Rate 2 03/22/23 03:14 03/21/23 03/22/23 03/22/23 22:59 06:59 14:59 Intake Total 417.5 / 2667.5 674.167 / 3341.667 Output Total 175 / 175 Balance 417.5 / 2667.5 499.167 / 3166.667 Weight last 48 hrs Weight 253 lb Weight 252 lb Physical Exam Narrative: General : Patient is well developed , no acute distress, oriented x3 Head : Normal cephalic, a-traumatic. Nose : Mucous membranes are without erythema. Lungs : Equal chest rise bilaterally, no use of accessory muscles, trachea is midline. CV : Rate and rhythm are normal. Abdomen : Soft, NT, mild distention per patient report this is normal abdomen for him. Data 03/22/23 04:39 03/22/23 04:39 A&P Assessment and plan (1) Partial small bowel obstruction: 62-year-old male with partial small bowel obstruction, being managed by nonoperative management. I am seeing this patient today while Dr. Piedra is away. Patient has made significant improvement. At this point is reasonable to start a soft diet, if there is good tolerance patient can be discharged at the discretion of the hospitalist team. It may be beneficial to start MiraLAX due to osmotic effect which will reduce swelling of the small bowel loops and facilitate intestinal transit. No acute surgical intervention is indicated at this time. ? Can advance diet as tolerated ? Please start MiraLAX daily ? Can be discharged if tolerating diet. Attestations Medical Necessity Statement*: Probably discharge in the next 24 hours Coding Level of Care Code 02076 Diagnoses Partial small bowel obstruction K56.600
--- NOTE | 2023-03-22 08:58 | PC.SOCIAL ---
IMM update IMM updated with patient. Verbalized an understanding. Copy Pg 2 provided. Initialled, dated,timed, and placed in chart.
[2023-03-22] MEDS: propranolol 20 mg Tablet PO (09:57)
[2023-03-22] MEDS: enoxaparin 100 mg/mL Syringe SUBCUT (09:57)
[2023-03-22 11:16] LABS: Glucose Point of Care 96 mg/dL (70-110)
[2023-03-22 11:53] LABS: Estmated Average Glucose 114; Hemoglobin A1C 5.6 % (4.0-6.0)
--- NOTE | 2023-03-22 12:35 | PC.NURSE ---
patient IV removed. Patient and daughter verbalized understanding of discharge instructions, home medications, and follow up appointments.
[2023-03-22 12:36] VITALS: BP 131/85; PULSE 58; RESP 15; TEMP 36.7; O2SAT 94
--- NOTE | 2023-03-22 13:56 | P.DS_ITS ---
Discharge Providers Date of Admission: 03/19/23 16:43 Date of Discharge: March 22, 2023 Attending Provider at Admission: Tania Albright MD Attending Provider at Discharge: Tania Albright MD Primary Care Provider: SILVER Pruitt Diagnoses at Discharge Discharge Diagnosis (1) Partial small bowel obstruction: Status: Acute Reason for Visit Reason for Visit: N/V/D Hospital Course Hospital Course Lizzie Dhillon is a 62 year old male, with a history of appendectomy, presented to the hospital with a 2-day history of nausea vomiting and diarrhea.? He denied any hematemesis, hematochezia and/or melena.??A CT of the abdomen and pelvis in the ER showed a small bowel obstruction with a transition point in the right lower quadrant. NGT was attempted to be placed twice however patient took it out x2. he was managed conservatively with IV fluids, pain control, diet was slowly advanced from clears to mechanical soft. he tolerated oatmeal this morning. He has been passing flatus and had a BM last evening. He wishes to go home today. Given his significant clinical improvement, he was discharged in stable condition. Given his SBO, Manjauro was discontinued. he was started on this drug for a diagnosis of DM per patient's daughter. His Hba1c was checked, returned at 5.6, not consistent with DM currently. No other hypoglycemic agents are currently indicated Physical Exam Narrative: General: No acute distress, AO x3 HEENT: PERRLA, pupils bilaterally equal and reactive, pallors not present Chest: Normal vesicular breath sounds, no added sounds, equal good air entry bilaterally CVS: S1-S2 regular, no murmurs, no tachycardia, no gallops, no rubs Abdomen: Soft, nontender, no organomegaly, bowel sounds present Neuro: No focal deficits, no facial deformity, AO x3, power 5/5 in all limbs Discharge Data Studies Completed and Pending Completed Studies During Hospitalization Category Date Time Status CT abdomen pelvis wo con [id number] Stat Cat Scan 03/19/23 15:38 Completed XR abdomen 1V* [id number] AM LABS Exams 03/22/23 04:00 Completed XR chest 1V portable [id number] Stat Exams 03/19/23 17:07 Completed XR chest 1V portable [id number] Stat Exams 03/19/23 22:53 Completed Pending at discharge Category Date Time Status Clostridioides Difficile PCR Routine Lab 03/19/23 21:24 Ordered Enteric Bacterial Panel by PCR Routine Lab 03/19/23 21:24 Ordered Enteric Parasite Panel by PCR Routine Lab 03/19/23 21:24 Ordered Immunochemical Fecal OCB Routine Lab 03/19/23 21:24 Ordered Lactoferrin Routine Lab 03/19/23 21:24 Ordered Radiology Impressions Abdomen/Pelvis CT 03/19/23 15:38 IMPRESSION: 1. Findings consistent with mid small bowel obstruction etiology of which is unclear. No compelling evidence of small bowel volvulus. 2. Mildly distended gallbladder with solitary gallstone. 3. Fatty infiltration of the liver. 4. Scattered diverticuli distal large bowel without evidence of acute diverticulitis. 5. Additional chronic findings as above. ADDENDUM: 03/19/23 [id number] THIS REPORT CONTAINS FINDINGS THAT MAY BE CRITICAL TO PATIENT CARE. The findings were verbally communicated via telephone conference with TAHIR ALCANTAR at 4:30 PM CDT on 03/19/2023. The findings were acknowledged and understood. Chest X-Ray 03/19/23 22:53 IMPRESSION: 1. Feeding tube tip in stomach, advanced since previous. 2. New bibasilar infiltrates. Correlate for pneumonia. Abdomen X-Ray 03/22/23 04:00 IMPRESSION: No acute findings. Laboratory Results WBC 6.9 10^3/uL (4.0-10.0) 03/22/23 04:39 RBC 4.18 10^6/uL (4.1-5.3) 03/22/23 04:39 Hgb 12.7 g/dL (11.7-16.6) 03/22/23 04:39 Hct 38.9 % (42.0-52.0) L 03/22/23 04:39 MCV 93.1 fl (80-94) 03/22/23 04:39 MCH 30.4 pg (28.0-34.0) 03/22/23 04:39 MCHC 32.6 g/dL (30.0-36.0) 03/22/23 04:39 RDW 12.6 % (12.1-15.1) 03/22/23 04:39 Plt Count 248 10^3/cmm (130-400) 03/22/23 04:39 MPV 9.2 fL (7.4-10.4) 03/22/23 04:39 Neut % (Auto) 50.5 % 03/22/23 04:39 Lymph % (Auto) 40.1 % 03/22/23 04:39 [place] % (Auto) 7.7 % 03/22/23 04:39 Eos % (Auto) 1.3 % 03/22/23 04:39 Baso % (Auto) 0.1 % 03/22/23 04:39 Neut # (Auto) 3.46 10^3/uL (1.8-7.7) 03/22/23 04:39 Lymph # (Auto) 2.8 10^3/uL (0.8-4.8) 03/22/23 04:39 [place] # (Auto) 0.5 10^3/uL (0.2-0.9) 03/22/23 04:39 Eos # (Auto) 0.1 10^3/uL (0.0-0.8) 03/22/23 04:39 Baso # (Auto) 0.0 10^3/uL (0.0-0.1) 03/22/23 04:39 Nucleated RBC % (auto) 0 % 03/22/23 04:39 Nucleated RBCs # 0.0 /100WBC 03/22/23 04:39 Sodium 141 mmol/L (136-145) 03/22/23 04:39 Potassium 4.1 mmol/L (3.5-5.1) 03/22/23 04:39 Chloride 106 mmol/L (98-107) 03/22/23 04:39 Carbon Dioxide 26 mmol/L (22-29) 03/22/23 04:39 Anion Gap 13.1 (5-19) 03/22/23 04:39 BUN 7 mg/dL (8-23) L 03/22/23 04:39 Creatinine 1.0 mg/dL (0.7-1.2) 03/22/23 04:39 GFR Calculation 76.0 mL/min (90-130) L 03/22/23 04:39 Glucose 91 mg/dL (65-115) 03/22/23 04:39 POC Glucose 96 mg/dL (70-110) 03/22/23 11:10 Estimat Average Glucose 114 03/22/23 04:39 Hemoglobin A1c 5.6 % (4.0-6.0) 03/22/23 04:39 Calculated Osmolality 290 mOsm/kg (285-295) 03/22/23 04:39 Calcium 8.2 mg/dL (8.5-10.5) L 03/22/23 04:39 Phosphorus 4.0 mg/dL (2.5-4.5) 03/20/23 06:41 Magnesium 1.9 mg/dL (1.7-2.3) 03/21/23 13:27 Iron 35 ug/dL (59-158) L 03/19/23 14:08 TIBC 378 mcg/dl 03/19/23 14:08 % Saturation 9.2 % (20-50) L 03/19/23 14:08 Unsat Iron Binding 343 ug/dL (112-347) 03/19/23 14:08 Total Bilirubin 0.5 mg/dL (0.15-1.2) 03/22/23 04:39 AST 11 U/L (0-40) 03/22/23 04:39 ALT 23 U/L (0-41) 03/22/23 04:39 Alkaline Phosphatase 54 U/L (40-130) 03/22/23 04:39 NT-Pro-B Natriuret Pep 46 pg/mL (0-125) 03/19/23 14:08 Total Protein 5.6 g/dL (6.6-8.7) L 03/22/23 04:39 Albumin 3.4 g/dL (3.5-5.2) L 03/22/23 04:39 Globulin 2.2 g/dL (1.3-4.6) 03/22/23 04:39 Triglycerides 122 mg/dL (0-150) 03/20/23 06:41 Cholesterol 150 mg/dL (0-200) 03/20/23 06:41 LDL Cholesterol, Calc 95 mg/dL (50-129) 03/20/23 06:41 Total VLDL Cholesterol 24 mg/dL (0-30) 03/20/23 06:41 HDL Cholesterol 31 mg/dL (60-100) L 03/20/23 06:41 Cholesterol/HDL Ratio 4.84 mg/dL (1.0-5.00) 03/20/23 06:41 Lipase 15 U/L (13-60) 03/19/23 14:08 Vitamin B12 459 pg/mL (232-1245) 03/19/23 14:08 Folate 9.4 ng/mL (4.5-32.2) 03/20/23 06:41 Procalcitonin 0.19 ng/mL (0-0.5) 03/19/23 14:08 TSH 1.65 uIU/mL (0.27-4.20) 03/20/23 06:41 Urine Color Yellow (Yellow) 03/20/23 05:15 Urine Appearance Hazy (CLEAR) A 03/20/23 05:15 Urine pH 5 (5-7) 03/20/23 05:15 Ur Specific [place] 1.030 (1.005-1.030) 03/20/23 05:15 Urine Protein 1+ (Negative) H 03/20/23 05:15 Urine Glucose (UA) Norm (Normal) 03/20/23 05:15 Urine Ketones 1+ (Negative) H 03/20/23 05:15 Urine Blood Neg (Negative) 03/20/23 05:15 Urine Nitrate Negative (Negative) 03/20/23 05:15 Urine Bilirubin 1+ (Negative) H 03/20/23 05:15 Urine Urobilinogen 1 mg/dL (Negative) H 03/20/23 05:15 Ur Leukocyte Esterase Negative (Negative) 03/20/23 05:15 Urine RBC None /hpf (0-2) 03/20/23 05:15 Urine WBC None /hpf (0-5) 03/20/23 05:15 Ur Squamous Epith Cells None /hpf (0-5) 03/20/23 05:15 Amorphous Sediment Not Reportable 03/20/23 05:15 Urine Bacteria 1+ /hpf (NONE) H 03/20/23 05:15 Hyaline Casts 5-10 /lpf H 03/20/23 05:15 Urine Mucus 4+ /hpf 03/20/23 05:15 Ur Random Sodium 38 mmol/L 03/20/23 05:15 Ur Random Potassium 92 mmol/L 03/20/23 05:15 Ur Random Chloride 30 mmol/L 03/20/23 05:15 Vitals Last Vital Signs Temp 98.0 F 03/22/23 12:36 Pulse 58 L 03/22/23 12:36 Resp 15 03/22/23 12:36 BP 131/85 03/22/23 12:36 Pulse Ox 94 03/22/23 12:36 O2 Del Method Room Air 03/22/23 08:00 O2 Flow Rate 2 03/22/23 08:00 Discharge Plan Discharge Patient Disposition: Home Condition: Stable Prescriptions: New Miralax 17 gram powder in packet 17 g PO DAILY 4 Days Qty: 14 0RF Continued apixaban 5 mg tablet 5 mg PO BID amlodipine 10 mg tablet 10 mg PO BEDTIME propranolol 20 mg tablet 20 mg PO BID lisinopril 40 mg tablet 40 mg PO QAM fluticasone propionate 50 mcg/actuation spray,suspension 2 spray INTRANASAL DAILY PRN (Reason: Allergy Symptoms) divalproex 250 mg tablet extended release 24 hr 250 mg PO BEDTIME magnesium oxide 400 mg magnesium Tablet 400 mg PO BEDTIME Discontinued Mounjaro 5 mg/0.5 mL pen injector 5 mg SUBCUT Q7D Rx Instructions: on sunday Discharge Orders: Discharge Order (Routine); Ordered 03/22/23 Ordered By: Tania Albright Referrals: Triny Gonzalez FNP [Primary Care Provider] - 04/03/23 2:00 pm (At [facility]) Discharge Diet: Advance as tolerated and Soft Mechanical Discharge Activity: Resume usual activity Patient Instructions: Polyethylene Glycol 3350 (By mouth), Bowel Obstruction (GEN), Opioid Safety Discharge Attestations Time Spent in Discharge Care*: greater than 30 min Quality Metrics Clinical Quality Measures [ No reported AMI, CVA or VTE this stay] Coding Level of Care Code Acute Code for Chg Fwd Diagnoses Partial small bowel obstruction K56.600
== END 2023-03-22 12:37 | disposition home or self-care (01) | DRG 389 ==
LOC: ER 15:22 → MEDSURG 17:18
PROVIDERS: Student in an Organized Health Care Education/Training Program; Admitting Provider Student in an Organized Health Care Education/Training Program; Emergency Provider Family Medicine; PCP Registered Nurse; Visit Provider Student in an Organized Health Care Education/Training Program
DX: K56.600 Partial intestinal obstruction, unspecified as to cause (principal); N17.9 Acute kidney failure, unspecified; E11.9 Type 2 diabetes mellitus without complications; Z79.85 Long-term (current) use of injectable non-insulin antidiabetic drugs; I10 Essential (primary) hypertension; Z87.820 Personal history of traumatic brain injury; Z86.718 Personal history of other venous thrombosis and embolism; Z87.891 Personal history of nicotine dependence; E86.0 Dehydration
CPT/HCPCS: 36415; 36416; 71045; 74018; 74176; 80053; 80061; 81001; 82436; 82607; 82746; 82962; 83036; 83540; 83550; 83690; 83735; 83880; 84100; 84133; 84145; 84300; 84443; 85025; 93005; 94664; 96361; 96372; 96374; 99232; 99285; C9113; J1650; J1815; J2060; J2543; J2550; J7030; Q3014